=== PATIENT | male | born 1965 | race Asian ===

== ENCOUNTER 2022-11-06 09:32 | Emergency (ER) | payer OTHER, BC ==
[~2022-11-06] VITALS: Ht 170.2 cm; Wt 83.6 kg
[2022-11-06] MEDS ORDERED: EPIN0.3P19 SQ (09:38)
[2022-11-06] MEDS ORDERED: LOSA-382 PO (09:38)
[2022-11-06] MEDS ORDERED: AMLO-257 PO (09:38)
[2022-11-06] MEDS ORDERED: IBUPROFEN 400 MG TABLET PO ONE (11:45)
[2022-11-06] MEDS ORDERED: LIDOCAINE 1% 10 ML VIAL ID ONE (11:45)
[2022-11-06] MEDS ORDERED: PERTUSS(ACELL),DIPH,TET VAC/PF 0.5 ML SYRINGE IM. ONE (11:45)
[2022-11-06] MEDS ORDERED: IBUP-1506 PO (12:34)
[2022-11-06] MEDS ORDERED: DOXY-354 PO (12:34)
[2022-11-06] MEDS ORDERED: BACITRACIN 0.9 GM PACKET OINTMENT TP ONE (12:45)
[2022-11-06] MEDS ORDERED: DOXYCYCLINE HYCLATE 100 MG TABLET PO ONE (12:45)
[2022-11-06 13:05] VITALS: BP 162/110; PULSE 58; RESP 16; TEMP 98.3
== END 2022-11-06 13:15 | disposition home or self-care (01) ==
LOC: EMS 09:41
DX: S61.215A Laceration without foreign body of left ring finger without damage to nail, initial encounter (principal); T14.8XXA Other injury of unspecified body region, initial encounter; I10 Essential (primary) hypertension; Z98.890 Other specified postprocedural states; Z88.0 Allergy status to penicillin; W26.9XXA Contact with unspecified sharp object(s), initial encounter; Y93.89 Activity, other specified; Y92.89 Other specified places as the place of occurrence of the external cause; Y99.8 Other external cause status
CPT/HCPCS: 99283; 73140; 90715; 90471; 12001; J3490